=== PATIENT | male | born 1935 | race African-American/Black ===

== ENCOUNTER → 2018-03-18 | Outpatient (REF) ==
[~2018-03-18] MED LIST: AMLODIPINE10 MG PO; BENAZEPRIL20 MG PO; METOPROLOL SUCC50 M2 PO
[2018-03-18 13:57] LABS: CALCIUM 8.9 mg/dL (8.4-10.2); POTASSIUM 4.5 mmol/L (3.4-5.0)
[2018-03-18 14:14] LABS: CREATININE, serum 5.63 mg/dL (0.66-1.25)
== END ==
LOC: ZMSC 13:26
PROVIDERS: Internal Medicine Nephrology
DX: Z01.89 Encounter for other specified special examinations (principal)

== ENCOUNTER → 2018-03-19 | Outpatient (REF) ==
[2018-03-19 05:22] LABS: CALCIUM 8.8 mg/dL (8.4-10.2); CREATININE, serum 3.62 mg/dL (0.66-1.25); POTASSIUM 4.4 mmol/L (3.4-5.0)
== END ==
LOC: ZMSC 05:08
PROVIDERS: Internal Medicine Nephrology
DX: R07.9 Chest pain, unspecified (principal)

== ENCOUNTER → 2020-11-16 | Outpatient (CLI) | payer MEDICARE, BC, OTHER | LOC: COL.RAD 15:00 | DX: G31.9 Degenerative disease of nervous system, unspecified (principal); I67.82 Cerebral ischemia ==

== ENCOUNTER 2021-03-05 14:13 | Emergency (ER) | payer MEDICARE, BC, OTHER ==
[~2021-03-05] VITALS: Ht 180.3 cm; Wt 104.5 kg
[2021-03-05 14:49] VITALS: BP 125/66; TEMP 98.4
[2021-03-05 15:39] VITALS: PULSE 65
== END 2021-03-05 15:39 | disposition home or self-care (01) ==
LOC: COL.ER 14:13
DX: S01.511A Laceration without foreign body of lip, initial encounter (principal); W01.0XXA Fall on same level from slipping, tripping and stumbling without subsequent striking against object, initial encounter; Y92.481 Parking lot as the place of occurrence of the external cause

== ENCOUNTER 2023-10-06 18:40 | Observation (INO) | payer MEDICARE, BC, OTHER ==
[~2023-10-06] VITALS: Ht 180.3 cm; Wt 102.4 kg
[2023-10-06 19:43] LABS: BASO % 0.1 % (0.0-2.0); EOS % 0.1 % (0.0-4.0); GRAN # 10.4 K/mm3 (1.4-6.5); GRAN % 82.3 % (42.2-75.2); HEMOGLOBIN 12.5 g/dl (13.5-18.0); LYMPH # 1.4 K/mm3 (1.2-3.4); LYMPH % 11.1 % (20.0-51.0); MEAN CELL VOLUME 92 fl (80.0-100.0); MEAN CORPUSCULAR HEMOGLOBIN 31 pg (27-31); MEAN CORPUSCULAR HGB CONC 34 g/dl (33.0-37.0); MEAN PLATELET VOLUME 9.2 fl (7.4-10.4); MONO # 0.8 K/mm3 (0.1-0.6); MONO % 6.1 % (1.7-9.3); PLATELET COUNT 193 K/mm3 (130-400); RED BLOOD COUNT 4.04 M/mm3 (4.20-5.60)
[2023-10-06] MEDS ORDERED: Pantoprazole 80 MG in NS 100 ML IV ONE (20:00)
[2023-10-06] MEDS ORDERED: NS 1,000 ML IV SCH (20:00)
[2023-10-06] MEDS ORDERED: LR 1,000 ML IV SCH (20:30)
[2023-10-06 20:36] LABS: INR 1.2 (0.8-3.0); PROTHROMBIN TIME 13.2 SECONDS (9.7-12.8)
[2023-10-06] MEDS ORDERED: FLOMAX 0.40.4 MG/CAP PO (20:56)
[2023-10-06] MEDS ORDERED: ARICEPT 5MG PO (20:56)
[2023-10-06] MEDS ORDERED: LIPITOR 10MG10 MG PO (20:56)
[2023-10-06] MEDS ORDERED: ZYLOPRIM 100MG100 MG PO (20:56)
[2023-10-06] MEDS ORDERED: NORVASC 10MG10 MG PO (20:56)
[2023-10-06] MEDS ORDERED: ASPIRIN 81M81 MG/TA2 PO (20:57)
[2023-10-06] MEDS ORDERED: HYGROTON 2525 MG/TAB PO (20:57)
[2023-10-06] MEDS ORDERED: LOTENSIN20 MG PO (20:58)
[2023-10-06] MEDS ORDERED: LOPRESSOR 550 MG/TAB PO (20:58)
[2023-10-06] MEDS ORDERED: SODIUM BICARBO650 MG PO (20:59)
[2023-10-06] MEDS ORDERED: BENAZEPRIL 20 MG PO SCH (21:00)
[2023-10-06] MEDS ORDERED: Metoprolol Tartrate 50 MG TAB PO SCH (21:00)
[2023-10-06] MEDS ORDERED: Atorvastatin 10 MG TAB PO SCH (21:00)
[2023-10-06] MEDS ORDERED: Donepezil 5 MG TAB PO SCH (21:00)
[2023-10-06] MEDS ORDERED: [UNRECOGNIZED DRUG - OTHER] PO SCH (21:00)
[2023-10-06 21:13] LABS: COLLECTION METHOD CLEAN CATCH
[2023-10-06] MEDS ORDERED: cefTRIAXone 2 G in Water For Injection,Sterile 20 ML IV SCH (21:15)
[2023-10-06] MEDS ORDERED: metroNIDAZOLE 100 ML IV SCH (21:15)
[2023-10-06] MEDS ORDERED: PROSCAR 5MG5 MG PO (21:30)
[2023-10-06 21:33] LABS: URINE APPEARANCE CLEAR (CLEAR/HAZY); URINE COLOR YELLOW (YELLOW)
[2023-10-06 21:34] LABS: URINE GLUCOSE NEGATIVE (NEGATIVE); URINE KETONE NEGATIVE (NEGATIVE); URINE PROTEIN(semi-quant) 2+ (BEGATIVE)
[2023-10-06 21:35] LABS: URINE BLOOD 1+ (NEGATIVE); URINE NITRATE NEGATIVE (NEGATIVE)
[2023-10-06] MEDS ORDERED: MOBIC15 MG PO (21:37)
[2023-10-07] VITALS (12 sets, daily range): BP systolic 149–183; BP diastolic 60–75; PULSE 60–71; TEMP 98.6–99.6
--- NOTE | 2023-10-07 05:28 | NUR ---
patient arrived from ED around 0015, alert and oriented with occasional forgetfullness and confusion. denies chest pain and shortness of breath. IV in Rh is patent, site is CDI. pt has no remarkable skin abnormalities and has no further needs, questions, or concerns at this time. unsteady getting to edge of the bed. fall precautions in place, call light within reach. will continue to monitor.
[2023-10-07] MEDS ORDERED: Ondansetron 4 MG/2 ML VIAL IV PRN (08:15)
[2023-10-07 08:41] LABS: BASO % 0.2 % (0.0-2.0); EOS # 0.1 K/mm3 (0.0-0.7); EOS % 0.4 % (0.0-4.0); GRAN # 10.4 K/mm3 (1.4-6.5); HEMOGLOBIN 10.8 g/dl (13.5-18.0); LYMPH # 1.4 K/mm3 (1.2-3.4); LYMPH % 11.2 % (20.0-51.0); MEAN CELL VOLUME 91 fl (80.0-100.0); MEAN CORPUSCULAR HEMOGLOBIN 31 pg (27-31); MEAN CORPUSCULAR HGB CONC 34 g/dl (33.0-37.0); MONO # 0.9 K/mm3 (0.1-0.6); MONO % 6.7 % (1.7-9.3); PLATELET COUNT 169 K/mm3 (130-400); RED BLOOD COUNT 3.48 M/mm3 (4.20-5.60); REDCELL DISTRIBUTION WIDTH-CV 13.8 % (11.5-14.5)
[2023-10-07 08:46] LABS: HEMATOCRIT 31.6 % (42.0-52.0)
[2023-10-07 08:51] LABS: CALCIUM 9.2 mg/dL (8.4-10.2); CREATININE, serum 1.6 mg/dL (0.72-1.25); POTASSIUM 4.1 mEq/L (3.5-4.5)
[2023-10-07] MEDS ORDERED: amLODIPine 10 MG TAB PO SCH (09:00)
[2023-10-07] MEDS ORDERED: Allopurinol 100 MG TAB PO SCH (09:00)
[2023-10-07] MEDS ORDERED: Lisinopril 20 MG TAB PO SCH (09:00)
[2023-10-07] MEDS ORDERED: Sodium Bicarbonate 650 MG TAB PO SCH (09:00)
[2023-10-07] MEDS ORDERED: Pantoprazole 40 MG in NS 10 ML IV SCH (09:00)
[2023-10-07] MEDS ORDERED: Chlorthalidone 25 MG TAB PO SCH (09:00)
[2023-10-07] MEDS ORDERED: Lidocaine PF 2% (20 MG/ML) 5 ML VIAL ONE (09:10)
[2023-10-07 09:16] LABS: THYROID STIMULATING HORMONE 1.657 uIU/mL (0.350-4.940)
--- NOTE | 2023-10-07 10:13 | NUR ---
power lineworker met with pt to discuss discharge planning. He reports to live alone in [place]. He reports to see Dr. Addison for PCP needs and [facility]. He confirmed his insurance as Medicare A and B, [employer], and [employer] supplemental. He reports his as BRIANNA, Codie [phone] and he has a son, Reymundo Valenzuela who lives in [place], he does not have his number. Pt does not have a DPOA-HC and was agreeable to his being BRIANNA. He reports to be independent with ADLS and uses no DME. He was just up walking independently with PT. PT/OT notes pending Discharge Plan: home
--- NOTE | 2023-10-07 10:50 | NUR ---
Pt. returned from Endo from EGD. Pt. is more alert than earlier this am. Shift assessment complete at this time. IV to rt. hand patent, fluids infusing per orders. Pt. denies further needs, call light within reach.
--- NOTE | 2023-10-07 14:20 | NUR ---
D: Application Support Technician stopped by room on rounds. A: Pt was resting and content. No needs right now. P: Application Support Technician informed pt that if he needed anything from the data collection interviewer area to let his nurse know. Application Support Technician will follow up as needed.
[2023-10-07] MEDS ORDERED: hydrALAZINE 20 MG/ML 1 ML VIAL IV ONE (15:30)
--- NOTE | 2023-10-07 23:28 | NUR ---
patient lying in bed, alert and oriented x4 with occasional forgetfullness. denies chest pain and shortness of breath. IV in RH is patent, site is [facility]. pt ambulating with SBA and steady gait using the surrounding for support. pt has no further needs, questions or concerns at this time. fall precautions in place, call light within reach. will continue to monitor.
[2023-10-08 03:54] VITALS: BP 139/65; PULSE 69; TEMP 98.7
[2023-10-08 03:59] VITALS: BP_SYST 139
[2023-10-08 06:28] LABS: BASO % 0.2 % (0.0-2.0); EOS # 0.3 K/mm3 (0.0-0.7); EOS % 2.8 % (0.0-4.0); GRAN % 67.5 % (42.2-75.2); HEMOGLOBIN 11.7 g/dl (13.5-18.0); LYMPH # 1.9 K/mm3 (1.2-3.4); LYMPH % 21.7 % (20.0-51.0); MEAN CELL VOLUME 93 fl (80.0-100.0); MEAN CORPUSCULAR HEMOGLOBIN 31 pg (27-31); MEAN CORPUSCULAR HGB CONC 33 g/dl (33.0-37.0); MEAN PLATELET VOLUME 9.3 fl (7.4-10.4); MONO # 0.7 K/mm3 (0.1-0.6); MONO % 7.6 % (1.7-9.3); PLATELET COUNT 185 K/mm3 (130-400); RED BLOOD COUNT 3.77 M/mm3 (4.20-5.60); REDCELL DISTRIBUTION WIDTH-CV 13.9 % (11.5-14.5)
[2023-10-08 06:29] LABS: HEMATOCRIT 35.1 % (42.0-52.0)
[2023-10-08 06:30] LABS: CALCIUM 9.4 mg/dL (8.4-10.2); CREATININE, serum 1.81 mg/dL (0.72-1.25)
[2023-10-08 07:19] VITALS: BP 171/71; PULSE 69; TEMP 98.5
[2023-10-08] MEDS ORDERED: PROTONIX 40MG T40 MG PO (08:45)
[2023-10-08] MEDS ORDERED: Chlorthalidone 25 MG TAB PO ONE (08:45)
[2023-10-08 09:14] VITALS: BP_SYST 171
--- NOTE | 2023-10-08 09:45 | NUR ---
patient laying in bed conversating with family. patient alert and oriented x3. patient on room air. denies any pain at this time. Patient shift assessment completed. call light within reach. bed at lowest position.
--- NOTE | 2023-10-08 09:56 | NUR ---
patient discharge intructions given. Patient questions and concerns answered. call light within reach.bed at lowest position.
--- NOTE | 2023-10-08 10:00 | NUR ---
PATIENT IV DISCONTINUED. PATIENT ACCOMPANIED OUT OF UNIT BY PCT AND .
== END 2023-10-08 10:00 | disposition home or self-care (01) ==
LOC: COL.ER 18:40 → MEDICAL 19:55
PROVIDERS: Nurse Practitioner; Nurse Practitioner Family; ADMIT Internal Medicine
DX: K25.4 Chronic or unspecified gastric ulcer with hemorrhage (principal); K21.00 Gastro-esophageal reflux disease with esophagitis, without bleeding; K29.70 Gastritis, unspecified, without bleeding; K44.9 Diaphragmatic hernia without obstruction or gangrene; K92.0 Hematemesis; D72.829 Elevated white blood cell count, unspecified; R93.3 Abnormal findings on diagnostic imaging of other parts of digestive tract; G31.84 Mild cognitive impairment of uncertain or unknown etiology; E11.22 Type 2 diabetes mellitus with diabetic chronic kidney disease; I12.9 Hypertensive chronic kidney disease with stage 1 through stage 4 chronic kidney disease, or unspecified chronic kidney disease; D63.1 Anemia in chronic kidney disease; N18.32 Chronic kidney disease, stage 3b; N40.1 Benign prostatic hyperplasia with lower urinary tract symptoms; N39.498 Other specified urinary incontinence; E78.5 Hyperlipidemia, unspecified; E87.20 Acidosis, unspecified; K31.89 Other diseases of stomach and duodenum; R53.81 Other malaise; R53.1 Weakness; D64.9 Anemia, unspecified; Z79.899 Other long term (current) drug therapy; Z87.891 Personal history of nicotine dependence; Z86.79 Personal history of other diseases of the circulatory system
CPT/HCPCS: OP; G0378; J0360; J0696; J1836; J2470; J2704; J7120